=== PATIENT | male | born 1960 ===

== ENCOUNTER 2018-10-04 20:35 | Emergency (ER) | payer OTHER ==
[2018-10-04 21:40] VITALS: BMI 27.9
[2018-10-04 21:42] VITALS: BP 142/86; PULSE 85; RESP 16; TEMP 98; O2SAT 99
--- NOTE | 2018-10-05 01:39 | ED PDOC ---
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 Denies fever, nausea/vomiting, chest pain, shortness of breath, palpitations, changes in bowel movements, urinary symptoms. Past Medical History Reviewed: Historical Data, Nursing Documentation, Vital Signs Vital Signs: Last Vital Signs Temp 98 F 10/04/18 21:40 Pulse 85 10/04/18 21:40 Resp 16 10/04/18 21:40 BP 142/86 10/04/18 21:40 Pulse Ox 99 10/04/18 21:40 - Medical History PMH: No Chronic Diseases - Surgical History Surgical History: No Surg Hx - Family History Family History: States: No Known Family Hx - Living Arrangements Living Arrangements: With Family - Home Medications Home Medications: Ambulatory Orders Medication Instructions Recorded Famotidine [Pepcid] 20 mg PO BID #20 tab 10/05/18 - Allergies Allergies/Adverse Reactions: Allergies Allergy/AdvReac Type Severity Reaction Status Date / Time No Known Allergies Allergy Verified 10/04/18 21:40 Review of Systems ROS Statement: Except As Marked, All Systems Reviewed And Found Negative Gastrointestinal: Positive for: Abdominal Pain Physical Exam - Reviewed Nursing Documentation Reviewed: Yes Vital Signs Reviewed: Yes - Physical Exam Appears: Positive for: Well, Non-toxic, No Acute Distress Head Exam: Positive for: ATRAUMATIC, NORMAL INSPECTION, NORMOCEPHALIC Skin: Positive for: Normal Color Eye Exam: Positive for: Normal appearance ENT: Positive for: Normal ENT Inspection Cardiovascular/Chest: Positive for: Regular Rate, Rhythm Respiratory: Positive for: Normal Breath Sounds Gastrointestinal/Abdominal: Positive for: Bowel Sounds, Soft, Tenderness (RUQ discomfort to deep palpation). Negative for: Distended, Guarding, Rebound Back: Positive for: Normal Inspection Extremity: Positive for: Normal ROM Neurological/Psych: Positive for: Awake, Alert, Oriented (x3) - Laboratory Results Result Diagrams: 10/05/18 02:30 10/05/18 02:30 - ECG O2 Sat by Pulse Oximetry: 99 - Progress ED Course And Treament: -cbc -cmp -lipase -RUQ u/s Ultrasound of the right upper quadrant. Indication: Right upper quadrant pain. Technique: Real-time ultrasound images were obtained. Findings: Increased hepatic echogenicity suggestive of hepatic steatosis. Unremarkable liver measuring 14.3 cm. Normal gallbladder thickness measuring 2.5 mm. No evidence of cholelithiasis. Nondilated common bile duct measuring 4.6 mm. Nonvisualization of the pancreas. Unremarkable IVC. Unremarkable aorta. Unremarkable right kidney. Impression: Unremarkable exam Patient educated on findings, discharged with rx Pepcid Advised follow up PMD within 2-3 days Return precautions given Disposition - Clinical Impression Clinical Impression: Abdominal pain - Patient ED Disposition Is Patient to be Admitted: No Counseled Patient/Family Regarding: Studies Performed, Diagnosis, Need For Followup, Rx Given - Disposition Referrals: [facility] [Outside] Disposition: Routine/Home Disposition Time: 03:26 Condition: GOOD Prescriptions: Famotidine [Pepcid] 20 mg PO BID #20 tab Instructions: Acute Abdomen (Belly Pain) Print Language: FRENCH
[2018-10-05 02:41] LABS: BASO % 0.6 % (0.0-2.0); EOS # 0.1 K/uL (0.0-0.7); EOS % 0.9 % (0.0-4.0); HEMOGLOBIN 14.2 g/dL (12.0-18.0); LYMPH # 3.7 K/uL (1.0-4.3); LYMPH % 42.3 % (20.0-40.0); MEAN CELL VOLUME 85.4 fl (80.0-94.0); MEAN CORPUSCULAR HEMOGLOBIN 28.6 pg (27.0-31.0); MEAN CORPUSCULAR HGB CONC 33.5 g/dL (33.0-37.0); MEAN PLATELET VOLUME 8.2 fl (7.2-11.7); MONO # 0.7 K/uL (0.0-0.8); MONO % 7.7 % (0.0-10.0); NEUT # 4.3 K/uL (1.8-7.0); NEUT % 48.5 % (50.0-75.0); NRBC % 0.1 % (0.0-0.0); RBC 4.98 Mil/uL (4.40-5.90); RED CELL DISTRIBUTION WIDTH 13.1 % (11.5-14.5); WHITE BLOOD COUNT 8.8 K/uL (4.8-10.8)
[2018-10-05 02:52] LABS: ALB/GLOB RATIO 1.4 (1.0-2.1)
[2018-10-05 02:58] LABS: ALBUMIN 4.2 g/dL (3.5-5.0); ALT/SGPT 49 U/L (21-72); AST/SGOT 29 U/L (17-59); BLOOD UREA NITROGEN 17 mg/dl (9-20); CALCIUM 9.1 mg/dL (8.4-10.2); GFR NON-AFRICAN AMERICAN > 60; LIPASE 52 U/L (23-300)
--- NOTE | 2018-10-05 14:27 | US ---
Date of service: 10/05/2018 HISTORY: ruq pain COMPARISON: None. TECHNIQUE: Sonographic evaluation of the right upper quadrant of the abdomen. FINDINGS: LIVER: Measures 14.3 cm in length. Normal echogenicity of the liver parenchyma. No mass. No intrahepatic bile duct dilatation. Normal hepatopetal portal venous flow. GALLBLADDER: Unremarkable. No gallstones. COMMON BILE DUCT: Measures 5 mm. No stones. No dilatation. PANCREAS: Unremarkable as visualized. No mass. No ductal dilatation. RIGHT KIDNEY: Measures 10.8 cm in length. Normal echogenicity. No calculus, mass, or hydronephrosis. AORTA: No aneurysmal dilatation. IVC: Unremarkable. OTHER FINDINGS: None . IMPRESSION: Unremarkable examination. The preliminary findings for this examination were reported by [facility] at 2:43 a.m. on 10/05/2018. There is concurrence of this report with the preliminary findings.
== END 2018-10-05 03:47 | disposition home or self-care (01) ==
LOC: H.ER 20:35
DX: R10.9 Unspecified abdominal pain (principal)